=== PATIENT | female | born 2005 | race Two or more races ===

== ENCOUNTER 2024-04-27 16:08 | Emergency (ER) | payer MEDICAID, OTHER ==
[~2024-04-27] VITALS: Ht 175.3 cm; Wt 89.0 kg
[2024-04-28] MEDS ORDERED: TIZA-142 PO (00:12)
[2024-04-28] MEDS ORDERED: METH4PAK PO (00:12)
--- NOTE | 2024-04-28 00:12 | ED.PDOC ---
Back pain HPI HPI Comments This is a 17-year-old female presents to the ED chief complaint neck pain x2 days. Patient reports sudden onset of right-sided neck pain that is gradually getting worse over the past 2 days. She notes pain is posterior right side of neck. 6/10 on pain scale throbbing and achy in nature nonradiating type pain. Denies any [id number] relief measures. Denies numbness, weakness, known injury, fever, chills, nausea or vomiting. Chief Complaint: Neck Pain Time Seen by MD: 23:32 Reviewed Notes: Nurses Notes, Medications, Allergies Allergies: Coded Allergies: NO KNOWN ALLERGIES (Unverified , 04/27/24) Home Meds Active Scripts Methylprednisolone (Medrol Dosepak) 4 Mg Hieu, 4 MG PO UD for 6 Days, #21 TAB UAD Prov:JAIMEE ARGUETA [facility] 04/28/24 Tizanidine Hydrochloride (Tizanidine Hcl) 4 Mg Tab, 4 MG PO HS PRN for 5 Days, #5 TAB Prov:JAIMEE ARGUETA [facility] 04/28/24 Information Source: Patient Mode of Arrival: Ambulatory Past Medical History PAST MEDICAL HISTORY: Denies Surgical History: Denies all surgeries FOREPART REDUCER History: No Pertinent FOREPART REDUCER History Family History Family History: Reviewed,noncontributory to illness Social History Smoker: Non-Smoker Alcohol: Denies ETOH Use Drugs: Denies Drug Use Constitutional: denies: chills, diaphoresis, fatigue, fever, malaise, sweats, weakness, others EENTM: denies: blurred vision, double vision, ear bleeding, ear discharge, ear drainage, ear pain, ear ringing, eye pain, eye redness, hearing loss, mouth pain, mouth swelling, nasal discharge, nose bleeding, nose congestion, nose pain, photophobia, tearing, throat pain, throat swelling, voice changes, others Respiratory: denies: cough, hemoptysis, orthopnea, SOB at rest, shortness of breath, SOB with excertion, stridor, wheezing, others Cardiovascular: denies: chest pain, dizzy spells, diaphoresis, Dyspnea on exertion, edema, irregular heart beat, left arm pain, lightheadedness, palpitations, PND, syncope, others Gastrointestinal: denies: abdomen distended, abdominal pain, blood streaked bowels, constipated, diarrhea, dysphagia, difficulty swallowing, hematemesis, melena, nausea, poor appetite, poor fluid intake, rectal bleeding, rectal pain, vomiting, others Genitourinary: denies: abnormal vagina bleeding, burning, dyspareunia, dysuria, flank pain, frequency, hematuria, incontinence, pain, , vagina discharge, urgency, others Neurological: denies: dizziness, fainting, headache, left sided numbness, left sided weakness, numbness, paresthesia, pre-existing deficit, right sided numbness, right sided weakness, seizure, speech problems, tingling, tremors, weakness, others Musculoskeletal: reports: neck pain; denies: back pain, gout, joint pain, joint swelling, muscle pain, muscle stiffness, others Integumetry: denies: bruises, change in color, change in hair/nails, dryness, laceration, lesions, lumps, rash, wounds, others Allergic/Immunocompromised: denies: Difficulty Healing, Frequent Infections, Hives, Itching, others Hematologic/Lymphatic: denies: anemia, blood clots, easy bleeding, easy bruising, swollen glands, others Endocrine: denies: excessive hunger, excessive sweating, excessive thirst, excessive urination, flushing, intolerance to cold, intolerance to heat, unexplained weight gain, unexplained weight loss, others Psychiatric: denies: anxiety, bipolar disorder, depression, hopeless, panic disorder, schizophrenia, sleepless, suicidal, others Physical Exam General Appearance: No Apparent Distress, Normal HEENT: Normal ENT Inspection, Pharynx Normal, TMs Normal Neck: Full Range of Motion, Tender Lateral (Right posterior) Respiratory: Lungs Clear, No Respiratory Distress, Normal Breath Sounds Cardiovascular: No Murmur, Normal Peripheral Pulses, Regular Rate/Rhythm Breast Exam: Deferred Gastrointestinal: Non Tender, Soft Genitalia: Deferred Pelvic: Deferred Rectal: Deferred Extremities: Normal capillary refill, Normal inspection, Normal range of motion, Non-tender, No pedal edema Musculoskeletal : Apperance: Normal Neurologic: Alert, oyster picker II-XII nml as Tested, No Motor Deficits, Normal Affect, Normal Mood, No Sensory Deficits Cerebellar Function: Normal Reflexes: Normal Skin: Dry, Normal Color, Warm Lymphatic: No Adenopathy Was a procedure done? Was a procedure done?: No Back Pain Differential Dx Differential Diagnosis: Fracture, Musculoskeletal Pain X-Ray, Labs, Meds, VS Vital Signs Date Time Temp Pulse Resp B/P (MAP) Pulse Ox O2 Delivery O2 Flow Rate FiO2 04/28/24 00:25 98.6 60 18 113/63 (80) 100 98.6 04/28/24 00:25 60 18 100 Room Air 04/27/24 16:27 98.0 82 20 128/97 (107) 97 X-Ray, Labs, Meds, VS Comment Likely cervical muscle strain. Patient given Toradol 60 mg IM and Flexeril 5 mg p.o. reports improvement in pain and function requesting discharge at this time. Script Medrol Dosepak and tizanidine for sleep. To follow up with her PCP if symptoms persist consider imaging and physical therapy. Advised on ER return precautions patient indicated understanding and agrees with discharge plan of care. Time of 1ST Reevaluation: 00:20 Reevaluation 1ST: Improved Patient Education/Counseling: Diagnosis, Treatment, Prognosis, Need For Follow Up Family Education/Counseling: No Family Present Departure 1 Departure Time of Disposition: 00:25 Impression: Primary Impression: Posterolateral cervical muscle strain Qualified Codes: S16.1XXA - Strain of muscle, fascia and tendon at neck level, initial encounter Disposition: HOME / SELF CARE / HOMELESS Condition: Stable e-Prescriptions Methylprednisolone (Medrol Dosepak) 4 Mg Hieu 4 MG PO UD for 6 Days, #21 TAB UAD Prov: JAIMEE ARGUETA 04/28/24 Tizanidine Hydrochloride (Tizanidine Hcl) 4 Mg Tab 4 MG PO HS PRN for 5 Days, #5 TAB Prov: JAIMEE ARGUETA 04/28/24 Discharged With: Significant Other Critical Care Note Critical Care Time?: No Stability Stability form required: JAIMEE Mena Apr 28, 2024 00:12
[2024-04-28 00:25] VITALS: BP 113/63; PULSE 60; RESP 18; TEMP 98.6; O2SAT 100
[2024-04-28] MEDS: CYCLOBENZAPRINE HCL 10 MG TAB PO ONE (00:25)
[2024-04-28] MEDS: KETOROLAC TROMETH 60MG/2ML VIAL IM ONE (00:25)
== END 2024-04-28 00:28 | disposition home or self-care (01) ==
LOC: ER 16:08
DX: S16.1XXA Strain of muscle, fascia and tendon at neck level, initial encounter (principal); Z79.899 Other long term (current) drug therapy; X58.XXXA Exposure to other specified factors, initial encounter; Y93.89 Activity, other specified; Y92.89 Other specified places as the place of occurrence of the external cause; Y99.8 Other external cause status